=== PATIENT | female | born 1945 | race Two or more races ===

== ENCOUNTER 2021-06-15 16:39 | Inpatient (IN) | payer MEDICAID ==
[~2021-06-15] VITALS: Ht 160 cm; Wt 67.1 kg
[2021-06-15] MEDS ORDERED: MIDAZOLAM HCL 100 MG in DEXT 5% WATER 80 ML IV PRN (18:00)
[2021-06-15] MEDS ORDERED: FENTANYL CITRATE 2,500 MCG in SODIUM CHLORIDE 0.9% 200 ML IV PRN (18:00)
[2021-06-15 18:09] LABS: CLARITY URINE CLEAR (CLEAR); COLOR URINE YELLOW (YELLOW); KETONES URINE NEGATIVE (NEGATIVE); LEUKOCYTE ESTERASE URINE NEGATIVE (NEGATIVE); NITRITE URINE NEGATIVE (NEGATIVE); OCCULT BLOOD URINE TRACE (NEGATIVE); PROTEIN URINE 1+ (NEGATIVE); SPECIFIC GRAVITY URINE 1.026 (1.005-1.030)
[2021-06-15 18:20] LABS: *AMPHETAMINES SCREEN URINE NEGATIVE (NEGATIVE); *BARBITURATES SCREEN URINE NEGATIVE (NEGATIVE)
[2021-06-15 18:21] LABS: *BENZODIAZEPINES SCREEN URINE NEGATIVE (NEGATIVE); *COCAINE SCREEN URINE NEGATIVE (NEGATIVE); CANNABINOID URINE SCREEN NEGATIVE (NEGATIVE); METHADONE URINE SCREEN NEGATIVE (NEGATIVE); OPIATES URINE SCREEN NEGATIVE (NEGATIVE); PHENCYCLIDINE URINE SCREEN NEGATIVE (NEGATIVE)
[2021-06-15 18:31] LABS: BASOPHILS % 0.5 % (0.0-2.0); EOSINOPHILS % 0.1 % (0.0-5.0); HEMATOCRIT. 42.6 % (36.0-48.0); HEMOGLOBIN. 13.9 g/dL (12.0-16.0); LYMPHOCYTES % 9.6 % (20.0-50.0); MEAN CORPUSCULAR HEMOGLOBIN 28.8 pg (28.0-32.0); MEAN CORPUSCULAR VOLUME 88.5 fL (81.0-99.0); MEAN PLATELET VOLUME 8.8 fl (7.4-10.4); MONOCYTES % 8.9 % (2.0-8.0); NEUTROPHILS % 80.9 % (40.0-76.0); PLATELET 171 x1000/uL (130-400); RED BLOOD CELL COUNT 4.81 mill/uL (4.2-5.4); RED CELL DISTRIBUTION WIDTH 16.9 % (11.6-14.6)
[2021-06-15 18:32] LABS: CHLORIDE 100 mEq/L (98-107)
[2021-06-15 18:35] LABS: ETHANOL BLOOD < 10 mg/dL
[2021-06-15] MEDS: ATROPINE SULFATE 1MG/10ML SYR IV ONE ×2 (18:45→19:00)
[2021-06-15] MEDS ORDERED: EPINEPHRINE 5 MG in SODIUM CHLORIDE 0.9% 250 ML IV PRN (18:45)
[2021-06-15] MEDS ORDERED: CEFTRIAXONE 1 G PREMIX 50 ML IV ONE (20:00)
[2021-06-15] MEDS ORDERED: IOHEXOL-350 100 ML BOTTLE ONE (21:48)
[2021-06-15] MEDS ORDERED: ONDANSETRON HCL 4MG/2ML INJ IV PRN (22:15)
[2021-06-15] MEDS ORDERED: PIPERACILLIN/TAZ 3.375G PREMIX 50 ML IV SCH (22:15)
[2021-06-15] MEDS ORDERED: LACTATED RINGERS 1,000 ML IV SCH ×2 (22:15)
[2021-06-15] MEDS ORDERED: NOREPINEPHRINE 8MG/250ML PMX 250ML IV PRN (22:45)
[2021-06-15] MEDS ORDERED: VANCOMYCIN 2,000 MG in DEXT 5% WATER 500 ML IV NR (22:45)
[2021-06-15] MEDS ORDERED: PIPERACILLIN/TAZOBACTAM 3.375G in DEXT 5% WATER 50ML IV NR (22:45)
[2021-06-15] MEDS: SODIUM CHLORIDE 0.9% 1,000 ML IV SCH (23:00)
[2021-06-15] MEDS ORDERED: ENOXAPARIN 30MG/0.3ML SYR SUBCUT SCH (23:30)
[2021-06-16] VITALS (61 sets, daily range): BP systolic 57–199; BP diastolic 31–143
[2021-06-16] MEDS ORDERED: VANCOMYCIN 2,000 MG in DEXT 5% WATER 500 ML IV NR (01:00)
[2021-06-16] MEDS: DOPAMINE 400MG/250ML PREMIX 250 ML IV PRN ×2 (02:11→12:38)
[2021-06-16] MEDS ORDERED: IOHEXOL-350 100 ML BOTTLE ONE (05:22)
[2021-06-16 05:44] LABS: BASOPHILS % 0.5 % (0.0-2.0); EOSINOPHILS % 0.4 % (0.0-5.0); HEMATOCRIT. 38.9 % (36.0-48.0); HEMOGLOBIN. 12.7 g/dL (12.0-16.0); MEAN CORPUSCULAR HEMOGLOBIN 27.9 pg (28.0-32.0); MEAN CORPUSCULAR VOLUME 85.6 fL (81.0-99.0); MEAN PLATELET VOLUME 8.5 fl (7.4-10.4); MONOCYTES % 11.5 % (2.0-8.0); NEUTROPHILS % 67.6 % (40.0-76.0); PLATELET 174 x1000/uL (130-400); RED BLOOD CELL COUNT 4.54 mill/uL (4.2-5.4); RED CELL DISTRIBUTION WIDTH 16.4 % (11.6-14.6)
[2021-06-16 05:48] LABS: CHLORIDE 104 mEq/L (98-107)
[2021-06-16 05:55] LABS: PHOSPHORUS 2.7 mg/dL (2.5-4.9)
[2021-06-16 05:56] LABS: LDL CHOLESTEROL 56 mg/dL (5-100)
[2021-06-16 05:57] LABS: CREATINE KINASE 44 IU/L (26-192); CREATINE KINASE MB FRACTION 1.7 ng/mL (0.5-3.6); HDL CHOLESTEROL 58 mg/dL (40-59)
[2021-06-16] MEDS: PIPERACILLIN/TAZOBACTAM 3.375G in DEXT 5% WATER 50ML IV SCH ×3 (06:42→23:33)
[2021-06-16] MEDS: IPRATROPIUM/ALBUTEROL 0.5-3(2.5)MG/3ML NEB HHN SCH ×4 (07:33→19:53)
[2021-06-16] MEDS ORDERED: FUROSEMIDE 40MG/4ML VIAL IVP NR (10:00)
[2021-06-16] MEDS ORDERED: LEVOTHYROXINE SODIUM 25MCG TABLET PO SCH (10:00)
[2021-06-16] MEDS ORDERED: FENTANYL CITRATE/PF 2,500 MCG in SODIUM CHLORIDE 0.9% 200 ML IV PRN (10:00)
[2021-06-16 10:01] LABS: BG BASE EXCESS 7.5 mmol/L (-2.0-2.0); BG CARBOXYHEMOGLOBIN 0.3 % (0.5-1.5); BG DEOXYHEMOGLOBIN 0.5 % (0.0-5.0); BG FRACTION INSPIRED OXYGEN 100; BG HCO3 ACT 33.6 mmol/L (22.0-26.0); BG METHEMOGLOBIN 0.2 % (0.0-1.5); BG OXYGEN SATURATION 99.5 % (92.0-98.5); BG PCO2 52.7 mmHg (35.0-45.0); BG PH 7.422 (7.350-7.450); BG PO2 216.9 mmHg (75.0-100.0); BG SAMPLE SITE RIGHT RADIAL; BG TOTAL HEMOGLOBIN 14.7 g/dL (12.0-18.0); BG TOTAL RESPIRATORY RATE 14 b/min; BG VENT MODE VENT - AC
[2021-06-16] MEDS ORDERED: RISP1 MT (10:03)
[2021-06-16] MEDS ORDERED: P50 MT (10:03)
[2021-06-16] MEDS ORDERED: MELA3TAB71 MT (10:03)
[2021-06-16] MEDS ORDERED: MIRT-118 MT (10:03)
[2021-06-16] MEDS ORDERED: ALBU6.7H9 INH (10:03)
[2021-06-16] MEDS ORDERED: LEVO200T8 MT (10:03)
[2021-06-16] MEDS ORDERED: AZIT250T12 MT (10:03)
[2021-06-16] MEDS ORDERED: MULT200T4 PO (10:03)
[2021-06-16] MEDS ORDERED: MAGN200T5 MT (10:03)
[2021-06-16] MEDS ORDERED: LACT10SO30 MT (10:03)
[2021-06-16] MEDS ORDERED: DIVA125T2 MT (10:03)
[2021-06-16] MEDS ORDERED: POLY1GRA MC (10:03)
[2021-06-16] MEDS ORDERED: ASCO125T PO (10:03)
[2021-06-16] MEDS ORDERED: DOCU-138 MT (10:03)
[2021-06-16] MEDS: SODIUM CHLORIDE 0.9% 1,000 ML IV SCH ×2 (10:52→23:35)
[2021-06-16 11:05] LABS: PROTHROMBIN TIME 11.1 sec (9.6-11.0)
[2021-06-16] MEDS: ENOXAPARIN 60MG/0.6ML SYR SUBCUT SCH ×2 (12:16→23:37)
[2021-06-16] MEDS: MIDAZOLAM HCL 100 MG in SODIUM CHLORIDE 0.9% 80 ML IV PRN (12:16)
[2021-06-16] MEDS ORDERED: AZITHROMYCIN 500 MG in DEXT 5% WATER 250 ML IV SCH (15:00)
[2021-06-16] MEDS: AZITHROMYCIN 500MG in DEXTROSE 5% WATER 250ML IV SCH (15:46)
[2021-06-16 17:51] LABS: CREATINE KINASE MB FRACTION 1.1 ng/mL (0.5-3.6)
[2021-06-16] MEDS: LEVOTHYROXINE SODIUM 50MCG TABLET PO SCH (23:37)
[2021-06-17] VITALS (96 sets, daily range): BP systolic 77–164; BP diastolic 41–103
[2021-06-17] MEDS ORDERED: VANCOMYCIN 1250MG in DEXTROSE 5% WATER 250ML IV SCH
[2021-06-17] MEDS: IPRATROPIUM/ALBUTEROL 0.5-3(2.5)MG/3ML NEB HHN SCH ×7 (00:03→20:53)
[2021-06-17 05:15] LABS: BASOPHILS % 0.4 % (0.0-2.0); EOSINOPHILS % 4.8 % (0.0-5.0); HEMATOCRIT. 37.1 % (36.0-48.0); HEMOGLOBIN. 12.2 g/dL (12.0-16.0); LYMPHOCYTES % 21.7 % (20.0-50.0); MEAN CORPUSCULAR VOLUME 85.1 fL (81.0-99.0); MEAN PLATELET VOLUME 8.3 fl (7.4-10.4); MONOCYTES % 8.8 % (2.0-8.0); NEUTROPHILS % 64.3 % (40.0-76.0); PLATELET 160 x1000/uL (130-400); RED BLOOD CELL COUNT 4.36 mill/uL (4.2-5.4); RED CELL DISTRIBUTION WIDTH 16.4 % (11.6-14.6)
[2021-06-17] MEDS: LEVOTHYROXINE SODIUM 50MCG TABLET PO SCH (05:18)
[2021-06-17] MEDS: PIPERACILLIN/TAZOBACTAM 3.375G in DEXT 5% WATER 50ML IV SCH ×3 (05:19→21:50)
[2021-06-17 05:21] LABS: CHLORIDE 106 mEq/L (98-107)
[2021-06-17] MEDS: VANCOMYCIN 1 G PREMIX 200 ML IV SCH (05:21)
[2021-06-17] MEDS ORDERED: MAGNESIUM 2 G PREMIX 50 ML IV ONE (07:00)
[2021-06-17 07:54] LABS: BG BASE EXCESS 6.6 mmol/L (-2.0-2.0); BG CARBOXYHEMOGLOBIN 0.3 % (0.5-1.5); BG DEOXYHEMOGLOBIN 4.7 % (0.0-5.0); BG HCO3 ACT 31.2 mmol/L (22.0-26.0); BG METHEMOGLOBIN 0.3 % (0.0-1.5); BG OXYGEN SATURATION 95.3 % (92.0-98.5); BG OXYHEMOGLOBIN 94.7 % (94.0-97.0); BG PCO2 44.7 mmHg (35.0-45.0); BG PH 7.462 (7.350-7.450); BG PO2 74.8 mmHg (75.0-100.0); BG SAMPLE SITE RIGHT RADIAL; BG TOTAL HEMOGLOBIN 13.4 g/dL (12.0-18.0); BG VENT MODE VENT - AC
[2021-06-17] MEDS ORDERED: POTASSIUM CHLORIDE INJ 40 MEQ in DEXT 5% WATER 250 ML IV ONE (08:00)
[2021-06-17 09:05] LABS: PHOSPHORUS 2.8 mg/dL (2.5-4.9)
[2021-06-17] MEDS ORDERED: POTASSIUM CHLORIDE 20MEQ TABLET SR PO NR (09:15)
[2021-06-17] MEDS: AZITHROMYCIN 500MG in DEXTROSE 5% WATER 250ML IV SCH (09:20)
[2021-06-17] MEDS ORDERED: MAGNESIUM 2 G PREMIX 50 ML IV NR (10:00)
[2021-06-17] MEDS: NOREPINEPHRINE 32 MG in DEXT 5% WATER 218 ML IV PRN (10:58)
[2021-06-17] MEDS: ENOXAPARIN 60MG/0.6ML SYR SUBCUT SCH (11:00)
[2021-06-17] MEDS: MIDAZOLAM HCL 100 MG in SODIUM CHLORIDE 0.9% 80 ML IV PRN (11:34)
[2021-06-17] MEDS: SODIUM CHLORIDE 0.9% 1,000 ML IV SCH (14:15)
[2021-06-17] MEDS ORDERED: POTASSIUM CHLORIDE 20MEQ/PACKET PO NR (14:45)
[2021-06-17] MEDS ORDERED: POTASSIUM CHLORIDE 20MEQ/PACKET NG NR (21:15)
[2021-06-18] VITALS (90 sets, daily range): BP systolic 66–163; BP diastolic 39–89
[2021-06-18] MEDS: IPRATROPIUM/ALBUTEROL 0.5-3(2.5)MG/3ML NEB HHN SCH ×6 (00:25→20:27)
[2021-06-18] MEDS ORDERED: ACETAMINOPHEN 650MG/20.3ML UDC NG PRN (03:15)
[2021-06-18] MEDS: ENOXAPARIN 60MG/0.6ML SYR SUBCUT SCH ×2 (03:25→11:52)
[2021-06-18] MEDS: SODIUM CHLORIDE 0.9% 1,000 ML IV SCH ×2 (03:26→17:26)
[2021-06-18] MEDS: MIDAZOLAM HCL 100 MG in SODIUM CHLORIDE 0.9% 80 ML IV PRN (04:54)
[2021-06-18 04:55] LABS: BASOPHILS % 0.5 % (0.0-2.0); EOSINOPHILS % 5.4 % (0.0-5.0); HEMATOCRIT. 37.4 % (36.0-48.0); HEMOGLOBIN. 12.2 g/dL (12.0-16.0); LYMPHOCYTES % 13.4 % (20.0-50.0); MEAN CORPUSCULAR HEMOGLOBIN 27.6 pg (28.0-32.0); MEAN CORPUSCULAR VOLUME 84.7 fL (81.0-99.0); MEAN PLATELET VOLUME 8.3 fl (7.4-10.4); MONOCYTES % 7.5 % (2.0-8.0); NEUTROPHILS % 73.2 % (40.0-76.0); PLATELET 174 x1000/uL (130-400); RED BLOOD CELL COUNT 4.41 mill/uL (4.2-5.4); RED CELL DISTRIBUTION WIDTH 16.8 % (11.6-14.6)
[2021-06-18 05:00] LABS: CHLORIDE 111 mEq/L (98-107)
[2021-06-18] MEDS: PIPERACILLIN/TAZOBACTAM 3.375G in DEXT 5% WATER 50ML IV SCH ×3 (06:08→21:27)
[2021-06-18] MEDS: VANCOMYCIN 1 G PREMIX 200 ML IV SCH (06:08)
[2021-06-18] MEDS: LEVOTHYROXINE SODIUM 50MCG TABLET PO SCH (06:11)
[2021-06-18] MEDS ORDERED: ATROPINE SULFATE 1MG/10ML SYR IV NR ×2 (11:30→15:30)
[2021-06-18] MEDS: AZITHROMYCIN 500MG in DEXTROSE 5% WATER 250ML IV SCH (14:28)
[2021-06-18 17:34] LABS: BG BASE EXCESS 0.9 mmol/L (-2.0-2.0); BG CARBOXYHEMOGLOBIN 0.3 % (0.5-1.5); BG DEOXYHEMOGLOBIN 2.6 % (0.0-5.0); BG FRACTION INSPIRED OXYGEN 55; BG METHEMOGLOBIN 0.3 % (0.0-1.5); BG OXYGEN SATURATION 97.4 % (92.0-98.5); BG OXYHEMOGLOBIN 96.8 % (94.0-97.0); BG PH 7.399 (7.350-7.450); BG PO2 101.3 mmHg (75.0-100.0); BG SAMPLE SITE RIGHT BRACHIAL; BG TOTAL HEMOGLOBIN 12.8 g/dL (12.0-18.0); BG VENT MODE VENT - CPAP
[2021-06-19] VITALS (80 sets, daily range): BP systolic 83–157; BP diastolic 37–86
[2021-06-19] MEDS: LORAZEPAM 2MG/ML CPJ IV PRN ×2 (00:04→09:26)
[2021-06-19] MEDS: ENOXAPARIN 60MG/0.6ML SYR SUBCUT SCH ×2 (00:05→12:07)
[2021-06-19] MEDS: IPRATROPIUM/ALBUTEROL 0.5-3(2.5)MG/3ML NEB HHN SCH ×5 (04:17→21:51)
[2021-06-19] MEDS: SODIUM CHLORIDE 0.45% 1,000 ML IV SCH (04:45)
[2021-06-19 05:07] LABS: CHLORIDE 114 mEq/L (98-107)
[2021-06-19 06:27] LABS: BG BASE EXCESS 1.9 mmol/L (-2.0-2.0); BG CARBOXYHEMOGLOBIN 0.2 % (0.5-1.5); BG DEOXYHEMOGLOBIN 2.3 % (0.0-5.0); BG FRACTION INSPIRED OXYGEN 55; BG HCO3 ACT 28.3 mmol/L (22.0-26.0); BG METHEMOGLOBIN 0.3 % (0.0-1.5); BG OXYGEN SATURATION 97.7 % (92.0-98.5); BG OXYHEMOGLOBIN 97.2 % (94.0-97.0); BG PCO2 52.2 mmHg (35.0-45.0); BG PH 7.352 (7.350-7.450); BG PO2 106.9 mmHg (75.0-100.0); BG SAMPLE SITE RIGHT RADIAL; BG TOTAL HEMOGLOBIN 12.1 g/dL (12.0-18.0); BG VENT MODE VENT - CPAP
[2021-06-19] MEDS: LEVOTHYROXINE SODIUM 200MCG TABLET PO SCH (06:54)
[2021-06-19] MEDS: VANCOMYCIN 1 G PREMIX 200 ML IV SCH ×2 (06:55→17:23)
[2021-06-19 12:38] LABS: BG BASE EXCESS 2.4 mmol/L (-2.0-2.0); BG DEOXYHEMOGLOBIN 2.6 % (0.0-5.0); BG FRACTION INSPIRED OXYGEN 60; BG HCO3 ACT 29.2 mmol/L (22.0-26.0); BG METHEMOGLOBIN 0.3 % (0.0-1.5); BG OXYGEN SATURATION 97.4 % (92.0-98.5); BG OXYHEMOGLOBIN 97.1 % (94.0-97.0); BG PCO2 55.4 mmHg (35.0-45.0); BG PO2 105.3 mmHg (75.0-100.0); BG SAMPLE SITE LEFT RADIAL; BG TOTAL HEMOGLOBIN 12.6 g/dL (12.0-18.0); BG VENT MODE COOL AEROSOL
[2021-06-19] MEDS ORDERED: KCL 20MEQ/100ML PREMIX 100 ML IV NR (13:00)
[2021-06-19] MEDS: NOREPINEPHRINE 32 MG in DEXT 5% WATER 218 ML IV PRN (14:30)
[2021-06-19] MEDS: AZITHROMYCIN 500MG in DEXTROSE 5% WATER 250ML IV SCH (17:20)
[2021-06-19] MEDS: PIPERACILLIN/TAZOBACTAM 3.375G in DEXT 5% WATER 50ML IV SCH ×2 (17:20→22:11)
[2021-06-19] MEDS: SODIUM CHLORIDE 0.9% 1,000 ML IV SCH ×3 (19:00→21:00)
[2021-06-20] VITALS (43 sets, daily range): BP systolic 93–150; BP diastolic 41–86
[2021-06-20] MEDS: ENOXAPARIN 60MG/0.6ML SYR SUBCUT SCH ×2 (00:16→12:43)
[2021-06-20] MEDS: IPRATROPIUM/ALBUTEROL 0.5-3(2.5)MG/3ML NEB HHN SCH ×4 (01:02→15:42)
[2021-06-20 04:49] LABS: BASOPHILS % 0.4 % (0.0-2.0); HEMATOCRIT. 36.3 % (36.0-48.0); HEMOGLOBIN. 11.5 g/dL (12.0-16.0); LYMPHOCYTES % 23.4 % (20.0-50.0); MEAN CORPUSCULAR HEMOGLOBIN 27.7 pg (28.0-32.0); MEAN CORPUSCULAR VOLUME 87.8 fL (81.0-99.0); MEAN PLATELET VOLUME 8.1 fl (7.4-10.4); MONOCYTES % 9.3 % (2.0-8.0); NEUTROPHILS % 60.9 % (40.0-76.0); PLATELET 166 x1000/uL (130-400); RED BLOOD CELL COUNT 4.13 mill/uL (4.2-5.4); RED CELL DISTRIBUTION WIDTH 17.1 % (11.6-14.6)
[2021-06-20 05:01] LABS: CHLORIDE 109 mEq/L (98-107)
[2021-06-20 05:20] LABS: T4 FREE 0.79 ng/dL (0.76-1.46)
[2021-06-20] MEDS: PIPERACILLIN/TAZOBACTAM 3.375G in DEXT 5% WATER 50ML IV SCH ×2 (06:17→16:24)
[2021-06-20] MEDS: LEVOTHYROXINE SODIUM 200MCG TABLET PO SCH (06:18)
[2021-06-20] MEDS ORDERED: POTASSIUM CHLORIDE INJ 40 MEQ in DEXT 5% WATER 250 ML IV NR (11:00)
[2021-06-20] MEDS: SODIUM CHLORIDE 0.45% 1,000 ML IV SCH (12:42)
[2021-06-20] MEDS: VANCOMYCIN 1 G PREMIX 200 ML IV SCH (12:42)
[2021-06-20] MEDS: AZITHROMYCIN 500MG in DEXTROSE 5% WATER 250ML IV SCH (16:24)
[2021-06-20] MEDS ORDERED: ENOXAPARIN 80MG/0.8ML SYR SUBCUT SCH (23:00)
[2021-06-21] MEDS ORDERED: LEVOTHYROXINE SODIUM 200MCG TABLET PO SCH (06:30)
[2021-06-21] MEDS ORDERED: LEVOTHYROXINE SODIUM 25MCG TABLET PO SCH (06:30)
== END 2021-06-20 17:30 | DRG 52 ==
LOC: ER 16:39 → MICUSO 22:21
PROVIDERS: ADMIT Internal Medicine; ATTEND Internal Medicine
PROC: 5A1945Z Respiratory Ventilation, 24-96 Consecutive Hours (ICD-10-PCS; principal; 2021-06-15)
PROC: 02HV33Z Insertion of Infusion Device into Superior Vena Cava, Percutaneous Approach (ICD-10-PCS; 2021-06-15)
PROC: B548ZZA Ultrasonography of Superior Vena Cava, Guidance (ICD-10-PCS; 2021-06-15)
PROC: 0BH17EZ Insertion of Endotracheal Airway into Trachea, Via Natural or Artificial Opening (ICD-10-PCS; 2021-06-15)
DX: G93.41 Metabolic encephalopathy (principal); J96.01 Acute respiratory failure with hypoxia; J69.0 Pneumonitis due to inhalation of food and vomit; J96.02 Acute respiratory failure with hypercapnia; J44.0 Chronic obstructive pulmonary disease with (acute) lower respiratory infection; E87.0 Hyperosmolality and hypernatremia; B35.1 Tinea unguium; D72.819 Decreased white blood cell count, unspecified; E03.9 Hypothyroidism, unspecified; F20.9 Schizophrenia, unspecified; R00.1 Bradycardia, unspecified; R73.9 Hyperglycemia, unspecified; Z20.822 Contact with and (suspected) exposure to COVID-19; F32.9 Major depressive disorder, single episode, unspecified; E87.6 Hypokalemia; R94.6 Abnormal results of thyroid function studies; Z86.73 Personal history of transient ischemic attack (TIA), and cerebral infarction without residual deficits; Z79.899 Other long term (current) drug therapy
CPT/HCPCS: 36415; 36600; 70496; 71045; 71275; 78580; 80048; 80053; 80061; 80202; 80305; 80307; 80320; 80329; 81003; 82140; 82375; 82533; 82550; 82553; 82805; 82962; 83036; 83605; 83735; 83880; 84100; 84132; 84145; 84439; 84443; 84484; 85025; 85379; 86376; 87070; 87426; 87804; 92610; 93005; 93306; 93970; 94002; 94003; 94640; 99291; A6261; J0456; J0461; J0696; J1265; J1650; J1940; J2060; J2250; J2405; J2543; J3010; J3370; J3475; J3480; J3490; J7050; J7060; Q9967; G0480